=== PATIENT | female | born 1945 | race Caucasian/White ===

== ENCOUNTER → 2022-04-03 | Outpatient (CLI) | payer MEDICARE, SELFPAY ==
[2022-04-03 11:14] VITALS: PULSE 56; PULSE 61; PULSE 62; PULSE 63; PULSE 66; PULSE 68; PULSE 69; PULSE 73; O2SAT 93; O2SAT 94; O2SAT 95; O2SAT 96
--- NOTE | 2022-04-03 11:18 | CPS ---
At the 2 minute saul pt needed to rest due to feeling S.O.B. Pt rested until the end of minute 4. Pt began walk again at start of minute 5.
--- NOTE | 2022-04-05 10:13 | PCM.PSN.6M ---
PSN 6 Minute Walk Test 6 Minute Walk Test 6 Minute Walk Test: 6 Minute Walk Test PSN:6-Minute Walk Test Start: 04/03/22 11:14 Freq: Status: Active Protocol: [id number] Document 04/03/22 11:14 [facility] (Rec: 04/03/22 11:20 [facility] [id number]) 6 Minute Walk Test Date Performed 04/03/22 Time Performed 11:15 Height 4 ft 8 in Weight: 199 lb Weight in Pounds 199.[address]: Dr Ruff Assistive device used: Walker Pre-test Oxygen Delivery Method Room Air Pulse Ox (%) 95 Pulse Rate (60-100 beats/min) 56 L Dyspnea Rigoberto Scale (0-10) 0 Exertion Rigoberto Scale (6-20) 6 1st minute Oxygen Delivery Method Room Air Pulse Ox (%) 95 Pulse Rate (60-100 beats/min) 61 2nd minute Oxygen Delivery Method Room Air Pulse Ox (%) 93 Pulse Rate (60-100 beats/min) 63 Dyspnea Rigoberto Scale (0-10) 2 Reported Symptoms Increased Work of Breathing 3rd minute Oxygen Delivery Method Room Air Pulse Ox (%) 95 Pulse Rate (60-100 beats/min) 66 Number of Rests Taken 1 4th minute Oxygen Delivery Method Room Air Pulse Ox (%) 96 Pulse Rate (60-100 beats/min) 62 Number of Rests Taken 1 5th minute Oxygen Delivery Method Room Air Pulse Ox (%) 93 Pulse Rate (60-100 beats/min) 69 6th minute Oxygen Delivery Method Room Air Pulse Ox (%) 94 Pulse Rate (60-100 beats/min) 73 Dyspnea Rigoberto Scale (0-10) 3 Exertion Rigoberto Scale (6-20) 13 Post-test Oxygen Delivery Method Room Air Pulse Ox (%) 93 Pulse Rate (60-100 beats/min) 68 Full Laps Walked 5 Partial Lap, Number of Tiles Walked 10 Total Distance Walked (ft) 305 04/03/22 11:18 Cardiopulmonary Services by Talita Bourgeois At the 2 minute saul pt needed to rest due to feeling S.O.B. Pt rested until the end of minute 4. Pt began walk again at start of minute 5. Initialized on 04/03/22 11:18 - END OF NOTE Interpretation Interpretation: The patient ambulated 305 feet over the course of 6 minutes beginning on room air with the use of a walker. Pretesting oxygen saturation was noted to be 95% on room air. With ambulation, the tien oxygen saturation was 93%. There was no significant exertional oxygen desaturation. However, there was significantly impaired walk distance. Recommendations Recommendations: There is no indication for the use of supplemental oxygen at this time.
== END | disposition home or self-care (01) ==
LOC: PSN 10:46
PROVIDERS: Referring Provider Internal Medicine Critical Care Medicine; Visit Provider Internal Medicine Critical Care Medicine
DX: R94.2 Abnormal results of pulmonary function studies (principal)
CPT/HCPCS: 94618

== ENCOUNTER → 2022-09-18 | Outpatient (CLI) | payer MEDICARE, SELFPAY | END | disposition home or self-care (01) | LOC: LABSPEC 15:43 | PROVIDERS: Referring Provider Urology; Visit Provider Urology | DX: R31.9 Hematuria, unspecified (principal) | CPT/HCPCS: 87086; 87088 ==

== ENCOUNTER → 2023-12-27 | Outpatient (CLI) | payer MEDICARE, SELFPAY ==
--- NOTE | 2023-12-27 13:08 | RAD_ITS ---
INDICATION: shortness of breath EXAMINATION/TECHNIQUE: X-RAY - XR Chest 2 Views COMPARISON: Prior study dated: 03/11/2014 FINDINGS: LINES/DEVICES: None. LUNGS: Persistent marked elevation of the left hemidiaphragm with underlying gas-filled stomach/bowel. Mild atelectasis overlies the elevated left hemidiaphragm. No consolidation, edema or effusion. No pneumothorax. MEDIASTINUM AND CARDIOVASCULAR STRUCTURES: Cardiac silhouette not enlarged. Central airways and mediastinal contour are unremarkable. BONES AND SOFT TISSUES: No acute abnormality. RAD/Chest PA and Lateral IMPRESSION: No acute pulmonary finding. Persistent elevation of the left hemidiaphragm. Electronically Signed: Vince Kaye MD at 1:37 EDT ,
== END | disposition home or self-care (01) ==
LOC: RAD 12:44
PROVIDERS: Referring Provider Nurse Practitioner Acute Care; Visit Provider Nurse Practitioner Acute Care
DX: R06.02 Shortness of breath (principal)
CPT/HCPCS: 71046

== ENCOUNTER → 2024-01-07 | Outpatient (CLI) | payer MEDICARE, SELFPAY | END | disposition home or self-care (01) | LOC: SL 09:53 | PROVIDERS: Referring Provider Nurse Practitioner Acute Care; Visit Provider Nurse Practitioner Acute Care | DX: R09.02 Hypoxemia (principal) | CPT/HCPCS: 94762 ==